=== PATIENT | female | born 1965 | race Caucasian/White ===

== ENCOUNTER → 2019-11-17 | Outpatient (CLI) | payer OTHER ==
--- NOTE | 2019-11-17 17:01 | RAD ---
EXAM DESCRIPTION: Shoulder,Left 2 or More Views CLINICAL HISTORY: SHOULDER PAIN LEFT COMPARISON: None Available. TECHNIQUE: Four views of the left shoulder. FINDINGS: No displaced fracture or dislocation of the shoulder. The alignment of the acromioclavicular and glenohumeral joints are intact. Mild acromioclavicular joint osteoarthrosis with joint space narrowing, and small inferiorly projecting marginal osteophyte formation. Subacromial interval appears intact. No rotator cuff calcification. IMPRESSION: 1. No acute osseous abnormality. 2. Mild left acromioclavicular joint osteoarthrosis. Electronically signed by: Venancio Law DO 11/17/2019 5:00 PM CDT
== END ==
LOC: RAD 09:00
PROVIDERS: ATTEND Orthopaedic Surgery
DX: M19.012 Primary osteoarthritis, left shoulder (principal)